=== PATIENT | female | born 1935 | race Caucasian/White ===

== ENCOUNTER 2017-02-06 14:40 | Outpatient (CLI) | payer MEDICARE | END 2017-02-06 14:42 | LOC: POD 14:40 | PROVIDERS: ATTEND Podiatrist | DX: B35.1 Tinea unguium (principal); L84 Corns and callosities; M79.674 Pain in right toe(s); M79.675 Pain in left toe(s) | CPT/HCPCS: 11721; G0463 ==

== ENCOUNTER 2017-03-14 12:05 | Inpatient (IN) | payer MEDICARE ==
--- NOTE | 2017-03-14 13:04 | ED Physician Documentation ---
General Adult - HPI Stated Complaint: Mental Status Changes Chief Complaint: Altered Mental Status Additional Information: Patient states that she has been having some nausea and vomiting yesterday. Is not sure how many times. Last BM was yesterday and normal. Has had a low grade fever at times, no chills noted. Has chronic OA pain but seems to be at baseline. Was seen by friends/relatives today and was found to have some mental status changes and was urged to be evaluated. Patient does take some oxycodone for chronic back pain. States that she has been taking the prescribed dose. Patient denies any falls. Does feel ill but not sure why. She denies any headaches, sore throat, flu type symptoms. Has had a mild nonproductive cough. Denies any swallowing problems. No abd pain, Has had some mild urinary urgency, no frequency. No tick bites. Patient was seen in the ED and found to have a leukocytosis of 20,000 with a left shift. RUL infiltrate on chest x-ray. Patient was initially felt to be dehydrated and was given 1 liter of NS. She did have a20 point drop in orthostatic BP from laying to sitting. Head CT scan showed age related changes. Onset: other (started sometime this AM) Timing: still present Severity: moderate - ROS CONST: fever. denies: chills CVS/RESP: cough. denies: chest pain, shortness of breath GI/: problems urinating, vomiting, nausea. denies: abdominal pain, diarrhea MS/SKIN/LYMPH: back pain (chronic). denies: calf pain NEURO/PSYCH: other (confused). denies: headache, fainting, dizziness - PAST HX Past History: other (fibromyalgia, OA) Immunizations: referred to PCP Allergies/Adverse Reactions: Allergies Allergy/AdvReac Type Severity Reaction Status Date / Time ciprofloxacin [From Cipro] Allergy Verified 03/14/17 13:08 ciprofloxacin HCl Allergy Verified 03/14/17 13:08 [From Cipro] Home Medications: Ambulatory Orders Medication Instructions Recorded Celecoxib [Celecoxib] 200 mg PO DAILY 03/14/17 Duloxetine HCl [Cymbalta] 20 mg PO DAILY 03/14/17 Hydrocodone/Acetaminophen 1 tab PO Q4-6 PRN 03/14/17 [Hydrocodon-Acetaminoph 7.5-325] Losartan/Hydrochlorothiazide 1 each PO DAILY 03/14/17 [Hyzaar 100-25 Tablet] Mirtazapine [Mirtazapine] 15 mg PO DAILY 03/14/17 amLODIPine BESYLATE [Norvasc] 5 mg PO 0900 03/14/17 - SOCIAL HX Smoking History: less than 1 pack/day Alcohol Use: none Drug Use: none - FAMILY HX Family History: No - VITAL SIGNS Vital Signs: Vital Signs Temp Pulse Resp BP Pulse Ox 97.1 F L 90 18 132/72 95 03/14/17 12:05 03/14/17 12:05 03/14/17 12:05 03/14/17 12:05 03/14/17 12:05 - REVIEWED ASSESSMENTS Nursing Assessment Reviewed: Yes Vitals Reviewed: Yes ED Results Lab/Radiology - Orders Orders: ED Orders Category Date Time Status CHEST P.A.&LAT 2 VIEWS [RAD] Routine Exams 03/14/[address] BRAIN W/O CONTRAST Stat Exams 03/14/17 Ordered CBC/PLATELET/DIFF Routine Lab 03/14/17 Ordered CMP Routine Lab 03/14/17 Ordered General Adult Physical Exam - PHYSICAL EXAM GENERAL APPEARANCE: mild distress EENT: eye inspection normal. No: no signs of dehydration (mouth is dry) NECK: normal inspection, thyroid normal, Kernig's RESPIRATORY: no resp distress, chest non-tender, breath sounds normal. No: wheezes, rales, rhonchi CVS: reg rate & rhythm, heart sounds normal, equal pulses ABDOMEN: soft, no organomegaly, normal bowel sounds, no distension BACK: other (tenderness over the mid cervical to the lumbar area. ) SKIN: warm/dry, normal color EXTREMITIES: non-tender, no edema NEURO: oriented X3, CN's nml as tested, motor nml, sensation nml, mood/affect nml (depressed). No: cognition normal (Patient was orientated, GCS 15/15, had troubel with abstrct thinking. ), weakness/sensory loss, speech/cognition abnml , sensory/motor deficit, asymmetric reflexes Discharge Clincal Impression: Mental status change Pneumonia Qualifiers: Pneumonia type: due to unspecified organism Laterality: right Lung location: upper lobe of lung Qualified Code(s): J18.1 - Lobar pneumonia, unspecified organism Disposition: ADMITTED INPATIENT Decision to Admit: [id number] Date of Decison to Admit: 03/14/17 Decision Time: 15:45
[2017-03-14] MEDS ORDERED: 0.9 % SODIUM CHLORIDE 1,000 ML IV ONE ×2 (13:11→19:01)
[2017-03-14] MEDS ORDERED: NALOXONE HCL 0.4 MG/ML AMP IVP ONE (13:25)
[2017-03-14] MEDS ORDERED: 0.9 % SODIUM CHLORIDE 1,000 ML IV SCH (13:30)
[2017-03-14 13:55] LABS: eGFR (African) > 60; eGFR (Non-African) > 60
[2017-03-14 13:59] LABS: MEAN CORPUSCULAR VOLUME 90.8 fl (80.0-100.0)
--- NOTE | 2017-03-14 14:20 | Diagnostic Imaging Report ---
MACHO SAMUEL [facility] [address] [facility] [address] [address] Report Submission Date: Mar 14, 2017 2:03:07 PM CDT Patient Study Name: RAPHAEL ELLIS Date: Mar 14, 2017 1:38:13 PM CDT Modality Type: CT\SR Gender: F Description: CT BRAIN W/O CONTRAST : 35 Institution: [facility] Physician: MACHO SAMUEL Examination: CT head without contrast History: Confusion Comparison exam: None available Technique: Noncontrast head CT protocol. Findings: Ventricles and sulci are prominent. Cerebrocerebellar parenchyma demonstrates extensive periventricular low attenuation consistent with small vessel disease. No evidence for parenchymal hemorrhage. No evidence for mass or mass effect. No midline shift. No extra axial fluid collections. Partial visualization of the paranasal sinuses, mastoid air cells, orbits, skull and scalp without gross regularity. Impression: Extensive age related changes. No acute parenchymal process. No hemorrhage. Electronically signed on Mar 14, 2017 2:03:07 PM CDT by: Asad WISE
--- NOTE | 2017-03-14 14:22 | Diagnostic Imaging Report ---
MACHO SAMUEL [facility] [address] [facility].[address] [address] Report Submission Date: Mar 14, 2017 2:00:30 PM CDT Patient Study Name: RAPHAEL ELLIS Date: Mar 14, 2017 1:28:44 PM CDT Modality Type: CR Gender: F Description: CHEST : 35 Institution: [facility] Physician: MACHO SAMUEL Examination: PA and lateral chest. History: Evaluate lung griffith. Comparison exam: None available Findings: PA lateral chest demonstrate a normal cardiac and mediastinal silhouette. Mild parenchymal haze involving the inferior margin of the right upper lung. No blunting of the costophrenic margins. Flattening of the diaphragms on lateral view. Osseous structures are appropriate for age. Impression: Mild infiltrate right upper lung. No effusion. Electronically signed on Mar 14, 2017 2:00:30 PM CDT by: Asad WISE
[2017-03-14] MEDS ORDERED: KETOROLAC TROMETHAMINE 30 MG/1ML VIAL IVP ONE (14:34)
[2017-03-14] MEDS ORDERED: cefTRIAXone SODIUM 1 GM VIAL ONE (14:38)
[2017-03-14] MEDS ORDERED: 0.9 % SODIUM CHLORIDE 50 ML IV ONE (14:38)
[2017-03-14] MEDS ORDERED: 0.9 % SODIUM CHLORIDE 250 ML IV ONE (14:38)
[2017-03-14] MEDS ORDERED: AZITHROMYCIN 500 MG VIAL IV ONE (14:38)
[2017-03-14] MEDS: cefTRIAXone SODIUM 1 GM in 0.9 % SODIUM CHLORIDE 50 ML IV SCH (14:45)
[2017-03-14] MEDS: AZITHROMYCIN 500 MG in 0.9 % SODIUM CHLORIDE 250 ML IV SCH (15:15)
--- NOTE | 2017-03-14 15:44 | History and Physical Report ---
History of Present Illnes - History of Present Illness Reason for Visit: Pneumonia likely due to aspiration History of Present Illness: 81 year old female presented to the ER. She states she was on the floor and when she woke up to her sister and her friend were standing over her. She notes that they wanted her to come in and be evaluated. She states she not sure what happened. She notes a mild cough, but denies any fever. Per ER physician and staff she came in confused. Her sister and friend reported that they were supposed to meet her for lunch and she did not show up and did not answer their phone calls. When they found her she was laying in her vomit and appeared very confused. Upon arrival in the ER she was found to be oriented x3 but was slow to respond to questions. She was not found to have any focal deficits or asymetrical weakness. Ct of the head was negative. Narcan was administered and they patient became more alert. She denies taking too much of her prescription pain medications that she can remember. She states she is feeling okay but is having some aches and pains. She was found to have an infiltrate on xray and has an elevated white count of 20,000. She notes she is in town visiting from [place] and was supposed to be leaving in a couple of days. She denies any other concerns at the time of interview. 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 Gastrointestinal: Constipation (related to pain medications - notes she sometimes takes a stool softner) Psych: Anxiety, Depression Musculoskeletal: Chronic low back pain (Due to arthritis) Rheumatologic: Fibromyalgia Endocrine: denies: Diabetes - Past Surgical History Past Surgical History: Appendectomy, Hysterectomy, Total Knee Replacement (Left) , Tonsillectomy - Past Social History Smoke: No Alcohol: Rare Lives: Alone - Health Maintenance Health Maintenance: Influenza Vaccine (2 weeks ago) Influenza Vaccine: Current for this Influenza Season (2 weeks ago) Pneumonia Vaccine: No Resuscitation Status: Do Not Resuscitate. Copy of DNR in paper chart. Review of Systems - Review of Systems Constitutional: Chills. negative: Fever Eyes: negative: pain, vision change ENT: negative: Ear Pain, Nose Discharge, Throat Pain Respiratory: Cough. negative: Shortness of Breath, Hemoptysis, Wheezing Cardiovascular: negative: Chest Pain, Light Headedness Gastrointestinal: Abdominal Pain (occasonial epigastric pain). negative: Nausea Genitourinary: negative: Dysuria Musculoskeletal: Back Pain (chronic - OA gets steroid injections) Skin: negative: Rash Neurological: Confusion. negative: Weakness, Seizures - Medications/Allergies Allergies/Adverse Reactions: Allergies Allergy/AdvReac Type Severity Reaction Status Date / Time ciprofloxacin [From Cipro] Allergy Verified 03/14/17 13:08 ciprofloxacin HCl Allergy Verified 03/14/17 13:08 [From Cipro] Home Medications: Home Medications Celecoxib [Celecoxib] 200 mg PO DAILY 03/14/17 Duloxetine HCl [Cymbalta] 20 mg PO DAILY 03/14/17 Hydrocodone/Acetaminophen [Hydrocodon-Acetaminoph 7.5-325] 1 tab PO Q4-6 PRN Losartan/Hydrochlorothiazide [Hyzaar 100-25 Tablet] 1 each PO DAILY 03/14/17 Mirtazapine [Mirtazapine] 15 mg PO DAILY 03/14/17 amLODIPine BESYLATE [Norvasc] 5 mg PO 0900 03/14/17 Current Inpatient Medications: Current Inpatient Medications Sodium Chloride (Normal Saline) 1,000 mls @ 1,000 mls/hr IV .Q1H [facility] Last Admin: 03/14/17 13:10 Dose: 1,000 mls/hr Ceftriaxone Sodium 1 gm/ (Sodium Chloride) 50 mls @ 100 mls/hr IV QD [facility] Last Admin: 03/14/17 14:45 Dose: 100 mls/hr Azithromycin 500 mg/ Sodium (Chloride) 250 mls @ 125 mls/hr IV Q24H [facility] Stop: 03/19/17 14:59 Last Admin: 03/14/17 15:15 Dose: 125 mls/hr Exam - Exam Vital Signs: Vital Signs (72 hours) 03/14/17 15:15 Pulse Rate [ 88 Pulse ox] Respiratory 18 Rate Blood Pressure 130/68 [Left Arm] O2 Sat by Pulse 98 Oximetry General: Oriented to Person, Oriented to Place, Oriented to Time, Cooperative, No acute distress, Discheveled, Thin HEENT: Atraumatic, PERRLA, EOMI Neck: Normal Range of Motion Lungs: Clear to auscultation, Speaks full Sentences Cardiovascular: Regular rate. No: Murmur Abdomen: Normal bowel sounds, Soft, No tenderness, No masses Integumentary: Normal, Ar[place], Warm, Decreased Turgor Extremities: No edema, No tenderness/swelling Neurological: Normal gait, Strength Equal Bilat, Sensation intact. No: Right Sided Weakness, Left Sided Weakness Psych/Mental Status: No: Mental status NL - Laboratory Results Laboratory Results: Laboratory Results - last 24 hr 03/14/17 03/14/17 13:09 13:09 WBC 20.80 H RBC 4.68 Hgb 14.9 Hct 42.5 MCV 90.8 MCH 32.0 MCHC 35.2 RDW 13.1 Plt Count 400 Sodium 121 L Potassium 3.0 L Chloride 80 L Carbon Dioxide 32 H BUN 11 Creatinine 0.40 L Estimated Creat Clear 111 Est GFR ( Amer) > 60 Est GFR (Non-Af Amer) > 60 Glucose 142 H Calcium 9.4 Total Bilirubin 0.5 AST 33 ALT 38 Alkaline Phosphatase 92 Total Protein 7.7 Albumin 4.3 Assessment/Plan - Assessment/Plan (1) Pneumonia Status: Acute Current Visit: Yes Qualifiers: Pneumonia type: aspiration pneumonia Aspiration pneumonia type: due to vomit Laterality: right Lung location: upper lobe of lung Qualified Code(s ): J69.0 - Pneumonitis due to inhalation of food and vomit Assessment: CXR shows mild right upper lung infiltrate. WBC count elevated. Patient is afebrile. Plan: Antibiotics (azithromycin and Rocephin) started. Repeat blood work in AM. (2) Mental status change Status: Acute Current Visit: Yes Assessment: Patient was confused on arrival. CT was negative. Narcan was administered. Patient was responsive to Narcan and was less confused. She was still slow to respond on admission to the floor but was Alert and orientated x3 at time of interview. She denies any desire to harm herself and states she does not remember taking too much of her pain medication. Plan: Will hold hydrocodone which was taken Q6hr scheduled per patient. Tramadol PRN to replace. (3) HTN (hypertension) Status: Acute Current Visit: Yes Assessment: BP stable on admission. Plan: Continue home doses of medication. Will monitor BP throughout admission. (4) Chronic back pain Status: Acute Current Visit: Yes Assessment: Patient notes history of Osteoarthitis and fibromyalgia which she states results in chronic back pain. She notes she has hydrocodone for this issues to take at home and gets steroid injection every 3 months in her lower back. Plan: Tramadol q6hr PRN for pain will be available for patient during her stay. Will monitor symptoms. Will hold hydrocodone due to possible accidental overdose of this medication. VTE Assessment - RISK FACTOR SCORE VTE RISK FACTOR SCORES: AGE OVER 60 YEARS, ACUTE INFECTION OTHER THEN SEPSIS - RISK VTE MODERATE RISK: SCORE OF 2 (RISK PROXIMAL DVT 2-4%) PROPHYAXIS NEEDED (On Lovenox)
[2017-03-14 17:14] VITALS: BMI 22.6
[2017-03-14] MEDS ORDERED: ENOXAPARIN SODIUM 30 MG/0.3 ML DISP.SYRIN SQ ONE (17:40)
[2017-03-14] MEDS: ENOXAPARIN SODIUM 30 MG/0.3 ML DISP.SYRIN SQ SCH (18:08)
[2017-03-14] MEDS: 0.9 % SODIUM CHLORIDE 1,000 ML IV SCH (18:09)
[2017-03-14] MEDS ORDERED: SALINE FLUSH 10 ML DISP.SYRIN IVF ONE (18:18)
[2017-03-14] MEDS ORDERED: traMADol HCL 50 MG TABLET ONE (20:32)
[2017-03-14] MEDS: traMADol HCL 50 MG TABLET PO PRN (20:36)
[2017-03-15] MEDS ORDERED: 0.9 % SODIUM CHLORIDE 1,000 ML IV ONE (04:55)
[2017-03-15] MEDS: 0.9 % SODIUM CHLORIDE 1,000 ML IV SCH (04:58)
[2017-03-15 05:20] LABS: APPEARANCE,URINE CLEAR (CLEAR); COLOR,URINE YELLOW (YELLOW); OCCULT BLOOD,URINE TRACE-INTACT (NEGATIVE); UROBILINOGEN URINE 0.2 Eu (0.2-1.0)
[2017-03-15] MEDS ORDERED: MIRTAZAPINE 15 MG TABLET PO ONE (05:41)
[2017-03-15] MEDS ORDERED: HYDROCHLOROTHIAZIDE 25 MG TABLET PO ONE (05:41)
[2017-03-15] MEDS ORDERED: CELECOXIB 100 MG CAPSULE ONE (05:42)
[2017-03-15] MEDS ORDERED: amLODIPine BESYLATE 5 MG TABLET ONE (05:42)
[2017-03-15] MEDS ORDERED: DULoxetine HCL 30 MG CAPSULE.DR PO ONE (05:42)
[2017-03-15] MEDS ORDERED: LOSARTAN POTASSIUM 50 MG TABLET PO ONE (05:42)
[2017-03-15 06:48] LABS: MEAN CORPUSCULAR HEMOGLOBIN 31.2 pg (28.0-34.0); MEAN CORPUSCULAR VOLUME 89.9 fl (80.0-100.0)
[2017-03-15 07:06] LABS: eGFR (African) > 60; eGFR (Non-African) > 60
[2017-03-15] MEDS ORDERED: POTASSIUM CHLORIDE 20 MEQ TABLET.ER PO ONE ×3 (07:18→14:00)
[2017-03-15] MEDS ORDERED: POTASSIUM CHLORIDE 20 MEQ TABLET.ER ONE ×3 (07:24→12:22)
[2017-03-15 08:06] LABS: BASOPHILS % 1 % (0-2); MONOCYTES % 8 % (0-11); SEGMENTED NEUTROPHILS % 83 % (39-79)
[2017-03-15] MEDS ORDERED: CELECOXIB 100 MG CAPSULE PO SCH (09:00)
[2017-03-15] MEDS ORDERED: amLODIPine BESYLATE 5 MG TABLET PO SCH (09:00)
[2017-03-15] MEDS ORDERED: DULoxetine HCL 30 MG CAPSULE.DR PO SCH (09:00)
[2017-03-15] MEDS ORDERED: LOSARTAN POTASSIUM 50 MG TABLET PO SCH (09:00)
[2017-03-15] MEDS ORDERED: HYDROCHLOROTHIAZIDE 25 MG TABLET PO SCH (09:00)
[2017-03-15] MEDS ORDERED: MIRTAZAPINE 15 MG TABLET PO SCH (09:00)
--- NOTE | 2017-03-15 09:27 | Inpatient Progress Note ---
Subjective - Required Recertification Statement I anticipate X number of days because-include discharge plan: 2 - Review of Systems Subjective: Cha states she is feeling well today. She states she is always in pain but pain is not worse than usual. She denies any chest pain, shortness of breath, dizziness. Per nursing she is a little unsteady on her feet. She is more alert today but still is very confused. She does not remember having any one in to visit her last night. She believes I am her niece despite being reminded that I am her health care provider. She cannot remember her sister's phone number. She did not have any family with her when she arrived and so we have not been able to talk to her family regarding her baseline mental status. Her labs reveal low sodium which she states is chronic and very low potassium. EKG shows peaked t-waves and slightly widened QRS complexes. She notes she is living in [place] currently in [place] with a roommate Mary who she did not get along with well. She states she was planning on moving back to [place] soon but does not have any definite plans at this time. She notes she does have a sister who is local but she is 88 and caring for her who is in a snf. General: Denies: Chills HEENT: Denies: Visual Changes Pulmonary: Cough (very mild) Cardiovascular: Denies: Chest Pain, Palpitations, Edema, Light Headedness Gastrointestinal: Denies: Nausea, Vomiting, Abdominal Pain Genitourinary: Denies: Dysuria Musculoskeletal: Back Pain (chronic) Neurological: Confusion. Denies: Change in Speech Objective - Exam Vitals and I&O: Vital Signs Temp 97.8 F 03/15/17 05:57 Pulse 92 H 03/15/17 05:57 Resp 18 03/15/17 05:57 BP 144/82 03/15/17 05:57 Pulse Ox 99 03/15/17 05:57 Intake & Output 03/14/17 03/14/17 03/15/17 11:59 23:59 11:59 Intake Total 240 Balance 240 Weight 56.245 kg Intake: Oral 240 Other: Voiding Method Toilet # Voids 3 General: Alert, Oriented to Person, Cooperative, No acute distress HEENT: Atraumatic, Mouth Mucous membr. moist/[place], Dentition Normal Neck: Supple Lungs: Clear to auscultation, Normal air movement, Speaks full Sentences. No: Respiratory Distress Cardiovascular: Regular rate. No: Murmur Abdomen: Normal bowel sounds, Soft, No tenderness Extremities: No edema Skin: Normal, Warm, Dry Neurological: Normal speech, Generalized Weakness. No: Normal gait (shuffling ) Psych/Mental Status: Mood NL. No: Mental status NL - Results Results: Laboratory Results WBC 12.78 K/ul (4.00-12.00) H 03/15/17 06:30 RBC 3.99 M/ul (3.90-5.20) 03/15/17 06:30 Hgb 12.4 g/dL (12.0-16.0) 03/15/17 06:30 Hct 35.9 % (34.5-46.5) 03/15/17 06:30 MCV 89.9 fl (80.0-100.0) 03/15/17 06:30 MCH 31.2 pg (28.0-34.0) 03/15/17 06:30 MCHC 34.7 g/dL (30.0-36.0) 03/15/17 06:30 RDW 13.1 % (11.3-14.3) 03/15/17 06:30 Plt Count 342 K/mm3 (130-400) 03/15/17 06:30 Seg Neutrophils % 83 % (39-79) H 03/15/17 06:30 Band Neutrophils % 3 % (0-12) 03/15/17 06:30 Lymphocytes % 5 % (16-50) L 03/15/17 06:30 Monocytes % 8 % (0-11) 03/15/17 06:30 Basophils % 1 % (0-2) 03/15/17 06:30 Plt Morphology Comment Normal (NORMAL) 03/15/17 06:30 RBC Morph Comment Normal (NORMAL) 03/15/17 06:30 Sodium 119 mmol/L (137-145) L* 03/15/17 06:30 Potassium 2.4 mmol/L (3.5-5.1) L* 03/15/17 06:30 Chloride 83 mmol/L (98-107) L 03/15/17 06:30 Carbon Dioxide 31 mmol/L (22-30) H 03/15/17 06:30 BUN 5 mg/dL (7-17) L 03/15/17 06:30 Creatinine 0.40 mg/dL (0.52-1.04) L 03/15/17 06:30 Estimated Creat Clear 115 03/15/17 06:30 Est GFR ( Amer) > 60 (60-) 03/15/17 06:30 Est GFR (Non-Af Amer) > 60 (60-) 03/15/17 06:30 Glucose 94 mg/dL (74-106) 03/15/17 06:30 Calcium 8.1 mg/dL (8.4-10.2) L 03/15/17 06:30 Total Bilirubin 0.3 mg/dL (0.2-1.3) 03/15/17 06:30 AST 36 U/L (15-46) 03/15/17 06:30 ALT 36 U/L (13-69) 03/15/17 06:30 Alkaline Phosphatase 71 U/L (38-126) 03/15/17 06:30 Total Protein 6.3 g/dL (6.3-8.2) 03/15/17 06:30 Albumin 3.3 g/dL (3.5-5.0) L 03/15/17 06:30 Urine Color Yellow (YELLOW) 03/14/17 15:05 Urine Appearance Clear (CLEAR) 03/14/17 15:05 Urine pH 7.0 (5.0 - 8.0) 03/14/17 15:05 Ur Specific [place] 1.020 (1.010-1.030) 03/14/17 15:05 Urine Protein Negative mg/dL (NEGATIVE) 03/14/17 15:05 Urine Ketones 2+ mg/dL (NEGATIVE) H 03/14/17 15:05 Urine Occult Blood Trace-intact (NEGATIVE) H 03/14/17 15:05 Urine Nitrite Negative (NEGATIVE) 03/14/17 15:05 Urine Bilirubin Negative (NEGATIVE) 03/14/17 15:05 Urine Urobilinogen 0.2 Eu (0.2-1.0) 03/14/17 15:05 Ur Leukocyte Esterase 1+ (NEGATIVE) H 03/14/17 15:05 Urine Glucose Negative mg/dL (NEGATIVE) 03/14/17 15:05 Assessment/Plan - Assessment/Plan (1) Pneumonia Status: Acute Current Visit: Yes Qualifiers: Pneumonia type: aspiration pneumonia Aspiration pneumonia type: due to vomit Laterality: right Lung location: upper lobe of lung Qualified Code(s ): J69.0 - Pneumonitis due to inhalation of food and vomit Assessment: WBC count greatly improved today. Started on Rocephin and Azithromycin. (2) Mental status change Status: Acute Current Visit: Yes Assessment: Patient remains confused but is definitely more alert today. She does not remember having friends visit her last night. She thinks I am her niece despite being told multiple times that I am her health care provider. She cannot remember the phone numbers of anyone in her family. Plan: Will try to get phone numbers or will talk with visitors to try to assess current mental status vs baseline mental status. (3) HTN (hypertension) Status: Acute Current Visit: Yes (4) Chronic back pain Status: Acute Current Visit: Yes (5) Hypokalemia Status: Acute Current Visit: Yes Assessment: Very low potassium on this mornings labs. Patient is more alert compared to yesterday. She denies any chest pain, palpitations, dizziness, or other concerns today. Plan: Aggressive oral potassium replacement. Will recheck labs this afternoon and in the am. (6) Hyponatremia Status: Acute Current Visit: Yes Assessment: Patient states this has been a chronic issue for her. Plan: Stop fluids and recheck CMP this afternoon and in AM. Will monitor mental status to see if there is any improvement with changes in sodium level.
[2017-03-15] MEDS ORDERED: traMADol HCL 50 MG TABLET ONE (09:51)
[2017-03-15] MEDS: traMADol HCL 50 MG TABLET PO PRN (09:52)
[2017-03-15] MEDS ORDERED: ACETAMINOPHEN 325 MG TABLET PO PRN (11:08)
[2017-03-15] MEDS ORDERED: ACETAMINOPHEN 325 MG TABLET ONE (11:24)
[2017-03-15] MEDS ORDERED: SALINE FLUSH 10 ML DISP.SYRIN IVF ONE ×3 (11:31→14:01)
[2017-03-15] MEDS ORDERED: ENOXAPARIN SODIUM 30 MG/0.3 ML DISP.SYRIN SQ ONE (13:52)
[2017-03-15] MEDS ORDERED: 0.9 % SODIUM CHLORIDE 50 ML IV ONE (13:53)
[2017-03-15] MEDS ORDERED: cefTRIAXone SODIUM 1 GM VIAL ONE (13:53)
[2017-03-15] MEDS: cefTRIAXone SODIUM 1 GM in 0.9 % SODIUM CHLORIDE 50 ML IV SCH (14:07)
[2017-03-15] MEDS ORDERED: AZITHROMYCIN 500 MG VIAL IV ONE (14:18)
[2017-03-15] MEDS ORDERED: 0.9 % SODIUM CHLORIDE 250 ML IV ONE (14:19)
[2017-03-15] MEDS: AZITHROMYCIN 500 MG in 0.9 % SODIUM CHLORIDE 250 ML IV SCH (15:13)
[2017-03-15 15:31] VITALS: BP 132/76
[2017-03-15 15:39] LABS: eGFR (African) > 60; eGFR (Non-African) > 60
[2017-03-15] MEDS: ENOXAPARIN SODIUM 30 MG/0.3 ML DISP.SYRIN SQ SCH (16:50)
== END 2017-03-15 17:11 | disposition short-term general hospital (02) | DRG 179 ==
LOC: ED 12:05 → SOUTH 14:57
PROVIDERS: ADMIT Physician Assistant; ATTEND Physician Assistant
DX: J69.0 Pneumonitis due to inhalation of food and vomit (principal); I10 Essential (primary) hypertension; M54.5 Low back pain
CPT/HCPCS: 70450; 71020; 80053; 81002; 85025; 87040; 87086; 87186; 99223; 99238; 99284; 99285; J0456; J0696; J1650; J1885; J2310; J7050; A9270; J7030; S1016

== ENCOUNTER 2017-03-19 15:41 | Inpatient (IN) | payer MEDICARE ==
--- NOTE | 2017-03-19 16:32 | History and Physical Report ---
History of Present Illnes - History of Present Illness Reason for Visit: Weakness History of Present Illness: Patient was originally found unresponsive last week. Upon arrival to the ER she responded well to narcan. Found to be hyponatremic. Due to worsening sodium level she was transferred to MICU at [facility]. Hyponatremia was corrected with IV normal saline. EEG was "borderline" but no seizure activity - possible encephalopathy. Cardiac work up was normal with EF 65%. On the day before discharge, staff noted patient to be very anxious, pacing, diaphoretic, tachycardic, and with diarrhea. This resolved on the day of discharge. Patient was too weak to return home. It has been decided she needs inpatient rehab to get her into an assisted living facility. She is worried about weakness and her memory. On visiting with patient, I informed her she couldn't keep her own meds here as we would supply them. Her "caregiver" moved to the drawers to remove meds. Patient became upset and stated she would do it herself. When her caregiver left, she informed me patient would not give her the norco. I asked patient about this and she said she had already given it to her friend. After searching 3 drawers, I found a bottle of 180 Hawley 7.5 mg. Patient's caregiver told me she had another smaller bottle at home and she had been taking it 2 tabs every 4 hours (bottle said 1 every 6) for "back pain" and "fibromyalgia" since . I talked to Dr. Clement at [facility] who agrees patient was likely withdrawing from narcotics on day before d/c. She was not given much Hawley at [facility]. She asked me to destroy the script for Hawley #30 she had given her. - Past Medical History Cardiac: HTN Gastrointestinal: Constipation (related to pain medications - notes she sometimes takes a stool softner) Psych: Anxiety, Depression Musculoskeletal: Chronic low back pain (Due to arthritis) Rheumatologic: Fibromyalgia - Past Surgical History Past Surgical History: Appendectomy, Hysterectomy, Total Knee Replacement (Left) , Tonsillectomy - Past Family History Mother Family History: Cancer (breast at 36), Father Family History: CAD, (75) Sister 1 Family History: CAD, DM, Hypertension, (3 and one alive (88 y.o.)) - Past Social History Smoke: No Occupation: Retired teacher; Grew up in [place] but moved to [place] (state) Alcohol: Rare Lives: Alone, Other (Son at 21 from OD cough med; Daughter at 59 from cancer; ) - Health Maintenance Health Maintenance: Influenza Vaccine (2 weeks ago) Influenza Vaccine: Current for this Influenza Season Pneumonia Vaccine: Yes Resuscitation Status: Resusciation Status Resuscitation Status Full Code Review of Systems - Review of Systems Constitutional: Weakness. negative: Fever Eyes: negative: pain ENT: negative: Ear Pain Respiratory: negative: Cough Cardiovascular: negative: Chest Pain Gastrointestinal: negative: Nausea Genitourinary: negative: Dysuria Musculoskeletal: negative: Neck Pain Skin: negative: Rash Neurological: negative: Weakness - Medications/Allergies Allergies/Adverse Reactions: Allergies Allergy/AdvReac Type Severity Reaction Status Date / Time ciprofloxacin [From Cipro] Allergy Verified 03/19/17 20:01 ciprofloxacin HCl Allergy Verified 03/19/17 20:01 [From Cipro] Home Medications: Home Medications Acyclovir [Zovirax] 800 mg PO BID 03/19/17 Calcium Carb 500Mg [Tums] 1 tab PO Q8 PRN 03/19/17 Hydroxyzine HCl 25 mg PO Q8 PRN 03/19/17 Lidocaine [Lidoderm] 1 patch TP DIRECTED 03/19/17 Losartan Potassium [Cozaar] 100 mg PO D 03/19/17 Simethicone 125 mg PO Q6 PRN 03/19/17 Exam - Exam General: Alert, Oriented to Person, Oriented to Place, Oriented to Time, Cooperative, No acute distress HEENT: Atraumatic, PERRLA, EOMI, Mouth Mucous membr. moist/[place] Neck: Normal Range of Motion Lungs: Clear to auscultation, Normal air movement, Speaks full Sentences Cardiovascular: Regular rate Abdomen: Normal bowel sounds, Soft Integumentary: Normal Extremities: No edema Neurological: Generalized Weakness Psych/Mental Status: Mental status NL, Mood NL, Appropriate Affect, Intact Judgment Assessment/Plan - Assessment/Plan (1) Weakness Status: Acute Current Visit: Yes Plan: Patient will be admitted for SNF/OT/PT/ST to try to get her into an Assisted Living Facility. (2) Fibromyalgia Status: Chronic Current Visit: No Plan: I feel patient's fibromyalgia should not be treated with chronic narcotics. Will explore other methods, like cymbalta, elavil, lyrica. (3) Chronic back pain Status: Chronic Current Visit: No Qualifiers: Back pain location: low back pain Back pain laterality: bilateral Sciatica presence: without sciatica Qualified Code(s): M54.5 - Low back pain; G89.29 - Other chronic pain; G89.29 - Other chronic pain Plan: We will limit the amount of hydrocodone patient is allowed. I feel she has gone through withdrawl while at [facility]. Will work on other avenues of treating her back pain. (4) HTN (hypertension) Status: Acute Current Visit: No Qualifiers: Hypertension type: essential hypertension Qualified Code(s): I10 - Essential (primary) hypertension Plan: Stable. VTE Assessment - RISK FACTOR SCORE VTE RISK FACTOR SCORES: AGE OVER 60 YEARS - RISK VTE LOW RISK: SCORE OF 1 OR LESS (RISK PROXIMAL DVT 0.4%) NO PROPHYLAXIS NEEDED
[2017-03-19] MEDS: ENOXAPARIN SODIUM 40 MG/0.4 ML DISP.SYRIN SQ SCH (17:19)
[2017-03-19 17:35] VITALS: BMI 23.6
[2017-03-19] MEDS ORDERED: SIMETHICONE 125 MG PO PRN (20:15)
[2017-03-19] MEDS ORDERED: CALCIUM CARB 500 MG TAB.CHEW PO PRN (20:15)
[2017-03-19] MEDS ORDERED: HYDROXYZINE HCL 25 MG TABLET PO PRN (20:15)
[2017-03-19] MEDS ORDERED: SIMETHICONE 80 MG TAB.CHEW PO PRN (20:17)
[2017-03-19] MEDS ORDERED: LIDOCAINE 5% ADH..PATCH TP SCH (21:00)
[2017-03-19] MEDS ORDERED: ACETAMINOPHEN PO SCH (21:00)
[2017-03-19] MEDS ORDERED: ACYCLOVIR 800 MG PO SCH (21:00)
[2017-03-19] MEDS ORDERED: HYDROCODONE PO SCH (21:00)
[2017-03-19] MEDS: ACYCLOVIR 200 MG CAPSULE PO SCH (22:15)
[2017-03-20] MEDS: HYDROcodone /APAP 5/325 1 EACH TABLET PO PRN ×2 (07:36→20:32)
[2017-03-20] MEDS: LOSARTAN POTASSIUM 50 MG TABLET PO SCH (08:48)
[2017-03-20] MEDS: amLODIPine BESYLATE 5 MG TABLET PO SCH (08:48)
[2017-03-20] MEDS: ACYCLOVIR 200 MG CAPSULE PO SCH (08:48)
[2017-03-20] MEDS ORDERED: LOSARTAN POTASSIUM 100 MG PO SCH (09:00)
[2017-03-20] MEDS: ENOXAPARIN SODIUM 40 MG/0.4 ML DISP.SYRIN SQ SCH (16:42)
[2017-03-20] MEDS: VALACYCLOVIR HCL 500 MG TABLET PO SCH (20:30)
[2017-03-21] MEDS: HYDROcodone /APAP 5/325 1 EACH TABLET PO PRN ×3 (05:12→17:59)
[2017-03-21] MEDS: LOSARTAN POTASSIUM 50 MG TABLET PO SCH (09:19)
[2017-03-21] MEDS: amLODIPine BESYLATE 5 MG TABLET PO SCH (09:19)
[2017-03-21] MEDS: VALACYCLOVIR HCL 500 MG TABLET PO SCH ×2 (09:19→21:23)
[2017-03-21] MEDS: ENOXAPARIN SODIUM 40 MG/0.4 ML DISP.SYRIN SQ SCH (17:59)
[2017-03-22] MEDS: LOSARTAN POTASSIUM 50 MG TABLET PO SCH (08:45)
[2017-03-22] MEDS: amLODIPine BESYLATE 5 MG TABLET PO SCH (08:45)
[2017-03-22] MEDS: VALACYCLOVIR HCL 500 MG TABLET PO SCH ×2 (08:45→20:12)
[2017-03-22] MEDS: HYDROcodone /APAP 5/325 1 EACH TABLET PO PRN (11:30)
[2017-03-22] MEDS: ENOXAPARIN SODIUM 40 MG/0.4 ML DISP.SYRIN SQ SCH (17:23)
[2017-03-23] MEDS: HYDROcodone /APAP 5/325 1 EACH TABLET PO PRN ×2 (07:36→17:33)
[2017-03-23] MEDS: LORATADINE 10 MG TABLET PO SCH ×2 (08:30→08:46)
[2017-03-23] MEDS: amLODIPine BESYLATE 5 MG TABLET PO SCH (08:31)
[2017-03-23] MEDS: LOSARTAN POTASSIUM 50 MG TABLET PO SCH (08:31)
[2017-03-23] MEDS: VALACYCLOVIR HCL 500 MG TABLET PO SCH ×2 (08:32→19:19)
[2017-03-23] MEDS: ENOXAPARIN SODIUM 40 MG/0.4 ML DISP.SYRIN SQ SCH (17:21)
[2017-03-24] MEDS: VALACYCLOVIR HCL 500 MG TABLET PO SCH ×2 (08:30→20:07)
[2017-03-24] MEDS: LORATADINE 10 MG TABLET PO SCH (08:30)
[2017-03-24] MEDS: amLODIPine BESYLATE 5 MG TABLET PO SCH (08:30)
[2017-03-24] MEDS: LOSARTAN POTASSIUM 50 MG TABLET PO SCH (08:30)
[2017-03-24] MEDS: HYDROcodone /APAP 5/325 1 EACH TABLET PO PRN (11:58)
[2017-03-24] MEDS: ENOXAPARIN SODIUM 40 MG/0.4 ML DISP.SYRIN SQ SCH (17:57)
[2017-03-25] MEDS: LORATADINE 10 MG TABLET PO SCH (08:44)
[2017-03-25] MEDS: VALACYCLOVIR HCL 500 MG TABLET PO SCH ×2 (08:45→19:35)
[2017-03-25] MEDS: amLODIPine BESYLATE 5 MG TABLET PO SCH (08:45)
[2017-03-25] MEDS: LOSARTAN POTASSIUM 50 MG TABLET PO SCH (08:45)
[2017-03-25] MEDS ORDERED: TUBERCULIN,PURIF.PROT.DERIV. 5 TU/0.1 ML ID SCH (10:00)
[2017-03-25] MEDS ORDERED: TUBERCULIN,PURIF.PROT.DERIV. 5 TU/0.1 ML ID ONE (13:14)
[2017-03-25] MEDS: HYDROcodone /APAP 5/325 1 EACH TABLET PO PRN ×2 (14:05→22:52)
[2017-03-25] MEDS: ENOXAPARIN SODIUM 40 MG/0.4 ML DISP.SYRIN SQ SCH (16:51)
[2017-03-26] MEDS: VALACYCLOVIR HCL 500 MG TABLET PO SCH ×2 (09:26→20:05)
[2017-03-26] MEDS: LORATADINE 10 MG TABLET PO SCH (09:26)
[2017-03-26] MEDS: amLODIPine BESYLATE 5 MG TABLET PO SCH (09:27)
[2017-03-26] MEDS: LOSARTAN POTASSIUM 50 MG TABLET PO SCH (09:27)
[2017-03-26] MEDS: HYDROcodone /APAP 5/325 1 EACH TABLET PO PRN ×2 (10:52→23:48)
[2017-03-26] MEDS: ENOXAPARIN SODIUM 40 MG/0.4 ML DISP.SYRIN SQ SCH (17:25)
[2017-03-27] MEDS: HYDROcodone /APAP 5/325 1 EACH TABLET PO PRN ×2 (08:14→20:50)
[2017-03-27] MEDS: LORATADINE 10 MG TABLET PO SCH (08:14)
[2017-03-27] MEDS: amLODIPine BESYLATE 5 MG TABLET PO SCH (08:15)
[2017-03-27] MEDS: LOSARTAN POTASSIUM 50 MG TABLET PO SCH (08:15)
[2017-03-27] MEDS: VALACYCLOVIR HCL 500 MG TABLET PO SCH ×2 (08:15→20:50)
[2017-03-27] MEDS: ENOXAPARIN SODIUM 40 MG/0.4 ML DISP.SYRIN SQ SCH (16:28)
[2017-03-28] MEDS ORDERED: SALINE FLUSH 10 ML DISP.SYRIN IVF ONE (02:45)
[2017-03-28] MEDS: LORATADINE 10 MG TABLET PO SCH (08:50)
[2017-03-28] MEDS: VALACYCLOVIR HCL 500 MG TABLET PO SCH ×2 (08:51→19:09)
[2017-03-28] MEDS: LOSARTAN POTASSIUM 50 MG TABLET PO SCH (08:51)
[2017-03-28] MEDS: amLODIPine BESYLATE 5 MG TABLET PO SCH (08:51)
[2017-03-28] MEDS: HYDROcodone /APAP 5/325 1 EACH TABLET PO PRN ×2 (09:48→19:38)
--- NOTE | 2017-03-28 11:36 | Discharge Summary ---
Discharge Summary - Discharge Sumary History of Present Illness: Patient was originally found unresponsive last week. Upon arrival to the ER she responded well to narcan. Found to be hyponatremic. Due to worsening sodium level she was transferred to MICU at [facility]. Hyponatremia was corrected with IV normal saline. EEG was "borderline" but no seizure activity - possible encephalopathy. Cardiac work up was normal with EF 65%. On the day before discharge, staff noted patient to be very anxious, pacing, diaphoretic, tachycardic, and with diarrhea. This resolved on the day of discharge. Patient was too weak to return home. It has been decided she needs inpatient rehab to get her into an assisted living facility. She is worried about weakness and her memory. On visiting with patient, I informed her she couldn't keep her own meds here as we would supply them. Her "caregiver" moved to the drawers to remove meds. Patient became upset and stated she would do it herself. When her caregiver left, she informed me patient would not give her the norco. I asked patient about this and she said she had already given it to her friend. After searching 3 drawers, I found a bottle of 180 [place] 7.5 mg. Patient's caregiver told me she had another smaller bottle at home and she had been taking it 2 tabs every 4 hours (bottle said 1 every 6) for "back pain" and "fibromyalgia" since . I talked to Dr. Clement at [facility] who agrees patient was likely withdrawing from narcotics on day before d/c. She was not given much Nazareth at [facility]. She asked me to destroy the script for [place] #30 she had given her. Condition at Discharge: Stable Home Medications: Ambulatory Orders Medication Instructions Recorded amLODIPine BESYLATE [Norvasc] 5 mg PO 0900 03/14/17 Calcium Carb 500Mg [Tums] 1 tab PO Q8 PRN 03/19/17 Lidocaine [Lidoderm] 1 patch TP DIRECTED 03/19/17 Losartan Potassium [Cozaar] 100 mg PO D 03/19/17 Simethicone 125 mg PO Q6 PRN 03/19/17 Loratadine [Claritin] 10 mg PO DAILY PRN #30 tablet 03/28/17 Acyclovir [Zovirax] 2 tab PO QID 03/30/17 Consultations this Visit: None Procedures this Visit: None Allergies/Adverse Reactions: Allergies Allergy/AdvReac Type Severity Reaction Status Date / Time ciprofloxacin [From Cipro] Allergy Verified 03/19/17 20:01 ciprofloxacin HCl Allergy Verified 03/19/17 20:01 [From Cipro] Discharge Summary: Patient was started on physical and occupational therapy was she did participate with. During her course of FMF day patient did improve in her ability to ambulate and transfer. Patient did have continuing episodes of confusion. It was felt that the patient may be developing some early dementia. Patient continued on her home medications for her hypertension which remains stable. At the time of discharge was felt that the patient would be better served in a residential care facility patient was subsequently admitted to [facility]. - Final Diagnosis (1) Weakness Problems: Improved with PT and OT. (2) HTN (hypertension) Problems: Stable on home meds (3) Mental status change Problems: Possibly related to some narcartic intolerance vs early dementia
--- NOTE | 2017-03-28 11:36 | Inpatient Progress Note ---
Subjective - Required Recertification Statement I anticipate X number of days because-include discharge plan: 5 Objective - Exam Vitals and I&O: Vital Signs Temp 96.9 F L 03/28/17 08:29 Pulse 75 03/28/17 08:29 Resp 20 03/28/17 08:29 BP 142/84 03/28/17 08:29 Pulse Ox 96 03/28/17 08:29 Intake & Output 03/27/17 03/27/17 03/28/17 11:59 23:59 11:59 Intake Total 440 1000 820 Balance 440 1000 820 Intake: Oral 440 1000 820 Other: Voiding Method Toilet Toilet
[2017-03-28] MEDS: ENOXAPARIN SODIUM 40 MG/0.4 ML DISP.SYRIN SQ SCH (16:57)
[2017-03-29] MEDS: LORATADINE 10 MG TABLET PO SCH (09:58)
[2017-03-29] MEDS: LOSARTAN POTASSIUM 50 MG TABLET PO SCH (09:59)
[2017-03-29] MEDS: VALACYCLOVIR HCL 500 MG TABLET PO SCH ×2 (09:59→20:40)
[2017-03-29] MEDS: amLODIPine BESYLATE 5 MG TABLET PO SCH (09:59)
[2017-03-29] MEDS: HYDROcodone /APAP 5/325 1 EACH TABLET PO PRN ×2 (09:59→20:40)
[2017-03-29] MEDS: ENOXAPARIN SODIUM 40 MG/0.4 ML DISP.SYRIN SQ SCH (17:54)
[2017-03-30] MEDS: LOSARTAN POTASSIUM 50 MG TABLET PO SCH (10:01)
[2017-03-30] MEDS: HYDROcodone /APAP 5/325 1 EACH TABLET PO PRN (10:01)
[2017-03-30] MEDS: VALACYCLOVIR HCL 500 MG TABLET PO SCH (10:01)
[2017-03-30] MEDS: amLODIPine BESYLATE 5 MG TABLET PO SCH (10:01)
[2017-03-30] MEDS: LORATADINE 10 MG TABLET PO SCH (10:01)
[2017-03-30 10:13] VITALS: BP 139/79
== END 2017-03-30 15:30 | DRG 948 ==
LOC: UNDOADMIN 15:41 → SOUTH 15:41
PROVIDERS: ADMIT Family Medicine; ATTEND Family Medicine
DX: R53.1 Weakness (principal); M79.7 Fibromyalgia; M54.5 Low back pain; G89.29 Other chronic pain; I10 Essential (primary) hypertension
CPT/HCPCS: 92507; 92521; 97110; 97112; 97116; 97161; 97530; 97535; A9270; J1650

== ENCOUNTER 2017-10-05 14:53 | Outpatient (CLI) | payer MEDICARE, OTHER ==
[2017-10-05 15:20] LABS: BASOPHILS % 0.4 (0.0-1.5); EOSINOPHILS % 1.6 % (0.0-6.8); MEAN CORPUSCULAR HEMOGLOBIN 32.1 pg (28.0-34.0); MEAN CORPUSCULAR VOLUME 101.3 fl (80.0-100.0); NEUTROPHILS # 4.9 # k/uL (1.4-7.7)
[2017-10-05 15:31] LABS: APPEARANCE,URINE CLOUDY (CLEAR); COLOR,URINE YELLOW (YELLOW); OCCULT BLOOD,URINE TRACE-INTACT (NEGATIVE); UROBILINOGEN URINE 0.2 Eu (0.2-1.0)
[2017-10-05 15:32] LABS: AMORPHOUS SEDIMENT,UR FEW (NEGATIVE)
[2017-10-05 15:50] LABS: eGFR (African) > 60; eGFR (Non-African) > 60
== END 2017-10-05 14:58 ==
LOC: LAB 14:53
PROVIDERS: ATTEND Family Medicine
DX: N34.3 Urethral syndrome, unspecified (principal); I10 Essential (primary) hypertension; E03.9 Hypothyroidism, unspecified
CPT/HCPCS: 36415; 80053; 81002; 84443; 85025

== ENCOUNTER 2017-10-23 13:36 | Outpatient (CLI) | payer OTHER | END 2017-10-23 13:38 | LOC: POD 13:36 | PROVIDERS: ATTEND Podiatrist | DX: B35.1 Tinea unguium (principal); M79.674 Pain in right toe(s); M79.675 Pain in left toe(s); L84 Corns and callosities | CPT/HCPCS: 11721; G0463 ==

== ENCOUNTER 2018-11-17 12:28 | Outpatient (CLI) | payer OTHER ==
--- NOTE | 2018-11-26 15:17 | OP Clinic Progress Note ---
DATE OF VISIT: 11/17/2018 CHIEF COMPLAINT: Low back pain. HISTORY OF PRESENT ILLNESS: Ms. Melton returns for her second visit today following her initial visit 2 weeks ago. The patient states the Robaxin is somewhat sedating and she takes tablet at a time. She does feel that her sleep and overall pain level has improved. The patient does appear to be much more comfortable today with an improvement in her ability to ambulate and her gait on observation. We had started this patient on gabapentin 100 mg q.8h., Celebrex 100 mg b.i.d., Robaxin 500 mg b.i.d. and added in [place] 5/325 mg 1 tablet p.o. q.8h. p.r.n. pain with a 2 week supply. We have reviewed the imaging that was ordered at the time of her last visit, including an x-ray of the lumbar spine, pelvis and hips, and the sacrum and coccyx. Please see below. PHYSICAL EXAMINATION: The patient is awake and alert. Vital signs are stable. Heart is regular in rate and rhythm. Eyes PERRLA. Throat clear. Trachea midline. Lungs have good excursion. Abdomen is soft and nontender. The patients distal lumbosacral tenderness has improved and left greater than right PSIS tenderness. IMAGIN. The patients x-ray of the sacrum and coccyx reveals diffuse osteopenia and acute fracture at the sacrococcygeal junction. 2. The patients lumbar spine x-ray reveals osteopenia and levoscoliosis with the presence of old vertebral compression fractures at levels L2, L3 and L5. 3. The patients bilateral hip imaging reveals only osteopenia without significant description of osteoarthritic changes. DIAGNOSES: 1. Scoliosis. 2. Lumbar spinal stenosis. 3. Lumbar disc displacement. 4. Lumbar spondylosis. 5. Sacroiliitis. 6. SI joint dysfunction. 7. Acute fracture, sacrococcygeal junction. 8. Osteopenia. PLAN AT THIS TIME: 1. We will increase the patients gabapentin to 300 mg q.8h. 2. The patient will need to have a new lumbar spine MRI with attention to the sacrum and coccyx to help assess the acuteness and/or age of her sacrococcygeal fracture. 3. We will have this patient set up for a left SI joint block in 2 weeks time, on 12/01/2018. 4. We may also consider a caudal epidural steroid injection for this patient into the future. 5. We will recommend that the patient followup with her primary care physician and get a DEXA scan for further delineation of her osteopenia and osteoporosis. The patient should probably be considered for calcium replacement or other treatment modalities for osteopenia/osteoporosis if she is a candidate. I look forward to seeing Ms. Melton in 2 weeks time for the left SI joint injection. Sincerely, Ramesh Wan M.D. (dictated but not read) computer generated signature MN/pre NOTE: Time spent with this patient was approximately 25 minutes today. FRANDY
== END 2018-11-17 13:00 ==
LOC: OUT 12:28
PROVIDERS: ATTEND Pain Medicine Interventional Pain Medicine
DX: M41.9 Scoliosis, unspecified (principal); M48.061 Spinal stenosis, lumbar region without neurogenic claudication; M51.26 Other intervertebral disc displacement, lumbar region; M47.816 Spondylosis without myelopathy or radiculopathy, lumbar region; M46.1 Sacroiliitis, not elsewhere classified; S32.2XXA Fracture of coccyx, initial encounter for closed fracture; X50.9XXA Other and unspecified overexertion or strenuous movements or postures, initial encounter; M85.9 Disorder of bone density and structure, unspecified
CPT/HCPCS: 99214

== ENCOUNTER 2019-01-18 10:57 | Outpatient (CLI) | payer OTHER ==
[~2019-01-18 10:57] MED LIST: 0.9 % SODIUM CHLORIDE PF 10 ML VIAL IJ ONE; Lidocaine 1% 5ml 10 MG/ML VIAL ONE; methylPREDNISolone ACETATE 80 MG/ML VIAL IM ONE
--- NOTE | 2019-01-24 13:35 | Operative Note ---
PROCEDURE: Caudal Epidural Steroid Injection, #3 DATE OF PROCEDURE: 01/18/2019 CHIEF COMPLAINT: Lower back pain. HISTORY OF PRESENT ILLNESS: Ms. Castro Melton is here for planned caudal epidural steroid injection #3. The patient is doing better following her previous injections. Her pain at rest is 2-3/10 and with ambulation may increase up to 8/10 intensity. PHYSICAL EXAM: On exam, the patient is awake and alert. Vital signs are stable. Heart is regular in rate and rhythm. Eyes PERRLA. Throat clear. Trachea midline. Lungs have good excursion. Abdomen is soft and nontender. The patient has distal lumbosacral tenderness. The patient has marked kyphosis in a standing position and walks with an antalgic gait. PREPROCEDURE DIAGNOSES: 1. Sacrococcygeal junction fracture per history. 2. Lumbar disc displacement. 3. Lumbar spondylosis. POSTPROCEDURE DIAGNOSES: 1. Sacrococcygeal junction fracture per history. 2. Lumbar disc displacement. 3. Lumbar spondylosis. PLAN: We will proceed with the planned procedure as mentioned above. DESCRIPTION OF PROCEDURE: After informed and written consent were taken from the patient, the patient was brought to the Procedure Room. The patient was placed in the prone position on the fluoroscopic table. A pillow was placed under the patients waist for improved positioning for this stated procedure. Time-out was taken with the staff present. We were all in agreement that the correct procedure was being done for this patient. The region for treatment in the caudal region was identified. The area was then prepped and draped in the usual sterile manner. With fluoroscopic guidance in the lateral position, the sacrum and coccyx were identified, as well as the sacral hiatus. This area was then marked with a surgical marker. The area was then infiltrated with 0.5% lidocaine 3 mL subcutaneously and intradermally. A 22-gauge 3.5-inch spinal needle was easily placed into the caudal epidural space with frequent negative aspiration for blood, air or CSF. A solution containing 9 mL of 0.5% lidocaine MPF with 80 mg of Depo-Medrol was then easily infiltrated with frequent negative aspiration. Following injection, the needle was removed. The ChloraPrep solution was cleansed. A bandage was applied. The patient was brought to the Recovery Room and observed. The patient was discharged in stable condition with no untoward effects. The patients preprocedure pain level was 2-3/10; with ambulation, may increase up to 8/10. The patients postprocedure pain level was 1-2/10. POST-PROCEDURE INSTRUCTIONS: We would have Ms. Castro Melton follow back in 1 month's time for a followup visit here in [facility]. We had previously recommended a lumbar back brace for her. I had given the nurses name of a gentleman from [facility] for a back brace by the name of Saravanan Melendez. He is apparently no longer with that company. We have recommended that the nurses call another individual from that same company, [employer]. The number has been given to the nurses to help arrange for that. Ramesh Wan MD(Dictated/not signed) /[employer] [id number] pre ] MTDD
== END 2019-01-18 11:28 | disposition home or self-care (01) ==
LOC: OUT 10:57
PROVIDERS: ATTEND Pain Medicine Interventional Pain Medicine
DX: M47.816 Spondylosis without myelopathy or radiculopathy, lumbar region (principal); M51.26 Other intervertebral disc displacement, lumbar region; Z87.81 Personal history of (healed) traumatic fracture
CPT/HCPCS: 62323; J1040

== ENCOUNTER 2019-02-22 13:28 | Outpatient (CLI) | payer OTHER ==
--- NOTE | 2019-03-20 12:55 | OP Clinic Progress Note ---
DATE OF VISIT: 02/22/2019 CHIEF COMPLAINT: 1. Low back pain. 2. Hip pain. HISTORY OF PRESENT ILLNESS: Mrs. Castro Melton is an 83-year-old female patient who previously saw Dr. Wan here. She complains of low back pain that is continuous, aching to sharp. Her pain radiates into bilateral hips, left greater than right. Her pain is worsened with walking, standing, prolonged sitting, bending and lifting. Pain is improved with laying on her right side and relaxing. The patient completed three caudal epidural steroid injections with Dr. Wan on 12/01/2018, 01/04/2019 and the last being on 01/18/2019. Her low back pain seems to be improved; however her hip pain, especially her left, is quite bothersome. The patient continues on tramadol, Celebrex and gabapentin with improvement in her pain symptoms. She denies any medication side effects or concerns at this time. PMFSH reviewed. REVIEW OF SYSTEMS: Positive for fatigue, decreased appetite, memory loss and vision changes related to glaucoma and macular degeneration, low back pain and hip pain. OBJECTIVE: General: This is an elderly female patient presenting in [facility]. Vital Signs: The patient's weight is 131 pounds. Temperature is 97.2, pulse 87, respiratory rate 18, blood pressure 150/75 with an SaO2 of 94% on room air. Her pain is rated 9/10 today. Psych: She is alert and oriented x3. She is calm, pleasant and cooperative. HEENT: She is normocephalic and atraumatic. Musculoskeletal: The patient has mild tenderness to palpation about L4-5 and L5-S1. She is exquisitely tender over her left SI joint. Neuro: Cranial nerves II-XII are grossly intact. Sensation to light touch is intact to bilateral lower extremities. IMPRESSION: 1. Chronic low back pain, improved with caudal epidural steroid injections. 2. Left sacroiliitis. 3. Lumbar spondylosis. 4. Lumbar disc displacement. 5. Sacrococcygeal junction fracture per patient history. PLAN: 1. Today I have ordered a left SI joint injection with Dr. Govea. The patient is not on any anticoagulants. 2. The patient is to follow up in one month or sooner if needed. The patient verbalizes understanding and agrees to the current treatment plan. Lola Becerra, DIRECTOR OF GROUP COUNSELING PROGRAM Nurse Practitioner /[employer] [id number] Job #[id number] cjd cc: Pedro Castro MD MTDD
== END 2019-02-22 14:28 ==
LOC: OUT 13:28
PROVIDERS: ATTEND Nurse Practitioner Adult Health
DX: M51.26 Other intervertebral disc displacement, lumbar region (principal); M46.1 Sacroiliitis, not elsewhere classified; M47.816 Spondylosis without myelopathy or radiculopathy, lumbar region
CPT/HCPCS: 99213

== ENCOUNTER 2019-04-05 13:25 | Outpatient (CLI) | payer OTHER ==
[~2019-04-05 13:25] MED LIST changes: -0.9 % SODIUM CHLORIDE PF 10 ML VIAL IJ ONE; +BUPIVACAINE HCL 0.5% (5MG/ML) PF 10ML VIAL IV ONE; +IOHEXOL 300 MG/ML BOTTLE 50 ML ONE; +methylPREDNISolone ACETATE 40 MG/ML VIAL IM ONE; -methylPREDNISolone ACETATE 80 MG/ML VIAL IM ONE
== END 2019-04-05 14:20 | disposition home or self-care (01) ==
LOC: OUT 13:25
PROVIDERS: ATTEND Physical Medicine & Rehabilitation Pain Medicine
DX: M53.3 Sacrococcygeal disorders, not elsewhere classified (principal); M47.818 Spondylosis without myelopathy or radiculopathy, sacral and sacrococcygeal region; M54.5 Low back pain
CPT/HCPCS: 27096; J1030; J3490; G0260